=== PATIENT | male | born 1980 | race Caucasian/White ===

== ENCOUNTER → 2020-08-04 09:41 | Outpatient (CLI) | payer OTHER, MEDICAID, SELFPAY ==
--- NOTE | 2020-08-04 09:43 | DI.RAD.S_ITS ---
PROCEDURE: XR PELVIS 1-2V INDICATIONS: pain TECHNIQUE: 1 view(s) of the pelvis acquired. COMPARISON: None. FINDINGS: Bones: No fractures or dislocations. No suspicious bony lesions. Soft tissues: Visualized bowel gas pattern is normal. No suspicious soft tissue calcifications. IMPRESSION: No trauma found, source of pain is not seen. Dictated by: Orlando Camarena M.D. on 08/04/2020 at 11:00 Approved by: Orlando Camarena M.D. on 08/04/2020 at 11:00
--- NOTE | 2020-08-04 09:43 | DI.RAD.S_ITS ---
PROCEDURE: XR THORACIC SPINE 3V INDICATIONS: pain TECHNIQUE: 3 views of the thoracic spine were acquired. COMPARISON: None. FINDINGS: Bones: No fractures or dislocations. No suspicious bony lesions. Twelve pairs of ribs are noted, and appear intact where visualized. On the lateral view there is mild anterior wedging of several adjacent midthoracic vertebral bodies, chronic in appearance, with mild kyphosis as a result. On the frontal view there appears to be a right-sided fracture, likely healed, involving the posterolateral 6th rib. Soft tissues: No paravertebral stripe thickening. IMPRESSION: Old mild wedge compression fractures along the middle 3rd of the thoracic spine with secondary mild kyphosis. What appears to be an old healed right posterolateral 6th rib fracture also can be seen, but no definite acute disease is. Dictated by: Orlando Camarena M.D. on 08/04/2020 at 11:02 Approved by: Orlando Camarena M.D. on 08/04/2020 at 11:04
--- NOTE | 2020-08-04 09:43 | DI.RAD.S_ITS ---
PROCEDURE: XR LUMBAR SPINE MIN 4V INDICATIONS: pain TECHNIQUE: 5 views of the lumbar spine were acquired, including bilateral oblique views. COMPARISON: None. FINDINGS: Bones: 5 nonrib-bearing vertebrae are present. There is normal bony alignment. No vertebral body compression fractures. No suspicious bony lesions. Note is made of a mild degree of degenerative facet osteoarthritis at L4-5 and a [id number] degree of such degeneration at L5-S1. Soft tissues: Overlying bowel gas pattern is normal. No suspicious soft tissue calcifications. Oblique images: No pars defects. IMPRESSION: No subluxation found. 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 No trauma found. Dictated by: Orlando Camarena M.D. on 08/04/2020 at 11:01 Approved by: Orlando Camarena M.D. on 08/04/2020 at 11:02
--- NOTE | 2020-08-04 09:43 | DI.RAD.S_ITS ---
PROCEDURE: XR CERVICAL SPINE 2V OR 3V INDICATIONS: pain TECHNIQUE: 3 view(s) of the cervical spine were acquired. COMPARISON: None. FINDINGS: Bones: No fractures or dislocations to the T1 level. The lateral masses of C1 appear intact on the odontoid view. No suspicious bony lesions. Soft tissues: No prevertebral soft tissue swelling. IMPRESSION: No trauma found, no subluxation seen. Source of current pain is not identified. Dictated by: Orlando Camarena M.D. on 08/04/2020 at 11:00 Approved by: Orlando Camarena M.D. on 08/04/2020 at 11:01
== END ==
PROVIDERS: PCP Family Medicine; Referring Provider Family Medicine; Visit Provider Family Medicine
DX: G89.29 Other chronic pain (principal); M25.551 Pain in right hip; M25.552 Pain in left hip; M54.12 Radiculopathy, cervical region; M54.2 Cervicalgia; M54.40 Lumbago with sciatica, unspecified side; M54.6 Pain in thoracic spine; M48.54XD Collapsed vertebra, not elsewhere classified, thoracic region, subsequent encounter for fracture with routine healing; M47.816 Spondylosis without myelopathy or radiculopathy, lumbar region; Z76.89 Persons encountering health services in other specified circumstances
CPT/HCPCS: 72040; 72072; 72110; 72170

== ENCOUNTER → 2022-03-14 13:26 | Outpatient (CLI) | payer OTHER, MEDICAID, SELFPAY ==
[2022-03-14 13:43] LABS: Add Manual Diff / Slide Review NO; Basophils Absolute Auto 100 /uL (0-100); Basophils Percent Auto 0.7 % (0-2); Eosinophils Absolute Auto 100 /uL (0-450); Eosinophils Percent Auto 1.3 % (2-4); Hematocrit 50.8 % (41-53); Hemoglobin 17.1 g/dL (13.5-17.5); Lymphocytes Absolute Auto 1700 /uL (1100-4500); Lymphocytes Percent Auto 23.6 % (25-40); Mean Corpuscular HGB Conc 33.7 % (30-36); Mean Corpuscular Hemoglobin 29.8 PG (26-34); Mean Corpuscular Volume 88.5 fL (80-100); Monocytes Absolute Auto 700 /uL (0-900); Monocytes Percent Auto 9.5 % (3-14); Neutrophils Absolute Auto 4600 /uL (1500-7000); Neutrophils Percent Auto 64.9 % (50-75); Platelet Count 304 X10^3/uL (150-400); Red Blood Cell Count 5.74 X10^6/uL (4.5-5.9); Red Cell Distribution Width 13.5 % (11.6-14.8); White Blood Cell Count 7.2 X10^3/uL (4.5-11.0)
[2022-03-14 14:36] LABS: Alanine Aminotransferase 29 IU/L (<50); Alkaline Phosphatase 50 U/L (38-126); Aspartate Aminotransferase 28 IU/L (17-59); BUN Creatinine Ratio 11.9 (6-22); Bilirubin Total 0.6 mg/dL (0.2-1.3); Blood Urea Nitrogen 12 mg/dL (9-20); Calcium 9.2 mg/dL (8.4-10.2); Carbon Dioxide 26 mmol/L (22-32); Chloride 103 mmol/L (98-107); Estimated Glomerular Filt Rate > 60 mL/min (>60); Glucose 81 mg/dL (70-100); HEMOLYSIS < 15 (0-50); Potassium 4.2 mmol/L (3.4-5.1); Sodium 139 mmol/L (137-145)
[2022-03-15 17:12] LABS: Albumin 4.6 g/dL (3.5-5.0); Albumin Globulin Ratio 1.4 (1.0-2.8); Globulin 3.4 g/dL (1.7-4.1)
== END ==
PROVIDERS: PCP Family Medicine; Referring Provider Family Medicine; Visit Provider Family Medicine
DX: Z00.00 Encounter for general adult medical examination without abnormal findings (principal); R35.89 Other polyuria; R63.1 Polydipsia
CPT/HCPCS: 36415; 80053; 85025